=== PATIENT | male | born 1950 | race Caucasian/White ===

== ENCOUNTER 2021-09-30 20:10 | Emergency (ER) | payer MEDICARE, OTHER ==
[2021-09-30] MEDS ORDERED: HYDROmorphone 1 MG/ML CARPUJECT IVP STA (20:31)
[2021-09-30 20:36] LABS: BASOPHILS # (AUTO) 0.1 10^3/uL (0.0-0.1); EOSINOPHILS # (AUTO) 0.1 10^3/uL (0.0-0.7); EOSINOPHILS % (AUTO) 1.9 %; HCT - HEMATOCRIT 43.8 % (42.0-52.0); HGB - HEMOGLOBIN 14.9 g/dL (14.0-18.0); LYMPHOCYTES # (AUTO) 1.6 10^3/uL (1.5-3.5); LYMPHOCYTES % (AUTO) 25.6 %; MEAN CORPUSCULAR HEMOGLOBIN 30.2 pg (27.0-31.0); MEAN CORPUSCULAR VOLUME 88.8 fL (80.0-94.0); MEAN PLATELET VOLUME 9.7 fL (7.4-11.4); MONOCYTES # (AUTO) 0.5 10^3/uL (0.0-1.0); MONOCYTES % (AUTO) 7.2 %; NEUTROPHILS % (AUTO) 64.1 %; PLT - PLATELET COUNT 200 10^3/uL (130-450); RED BLOOD COUNT 4.93 10^6/uL (4.70-6.10); RED CELL DISTRIBUTION WIDTH 12.2 % (12.0-15.0); WHITE BLOOD COUNT 6.2 x10^3/uL (4.8-10.8)
[2021-09-30 20:50] LABS: ALBUMIN 4.3 g/dL (3.2-5.5); ALBUMIN/GLOBULIN RATIO 1.4 (1.0-2.2); BILIRUBIN,TOTAL 1.3 mg/dL (0.2-1.0); CALCIUM 9.9 mg/dL (8.5-10.3); CREATININE 0.8 mg/dL (0.6-1.2); POTASSIUM 3.4 mmol/L (3.5-5.0); TOTAL PROTEIN 7.3 g/dL (6.7-8.2)
--- NOTE | 2021-09-30 20:52 | XRAY Report ---
PROCEDURE: Chest 1 View X-Ray INDICATIONS: Chest pain TECHNIQUE: One view of the chest was acquired. COMPARISON: None FINDINGS: Surgical changes and devices: None. Lungs and pleura: No pleural effusions or pneumothorax. Lungs are clear. Mediastinum: Mediastinal contours appear normal. Heart size is normal. Bones and chest wall: No suspicious bony lesions. Overlying soft tissues appear unremarkable. IMPRESSION: Chest without acute cardiopulmonary abnormalities or focal airspace disease. Reviewed by: Yahir Christensen MD on 09/30/2021 8:51 PM PDT Approved by: Yahir Christensen MD on 09/30/2021 8:51 PM PDT Station ID: [id number]
--- NOTE | 2021-09-30 21:32 | ED Physician Documentation ---
PD HPI ABD PAIN - Stated complaint Stated Complaint: UPPER ABD/RIB PX - Chief complaint Chief Complaint: Cardiac - History obtained from History obtained from: Patient - History of Present Illness Timing - onset: How many hours ago (2-3) Timing - details: Abrupt onset Pain level max: 6 Pain level now: 0 Quality: Pain Location: Other (across upper abdomen) Improved by: Other (pain has resolved by the time of this evaluation but no apparent ameliorating factors when symptoms were present) Worsened by: Other (no exacerbating factors) Associated symptoms: No: Fever, Nausea, Vomiting, Diarrhea, Constipation, Dysuria, Hematuria, Chest pain, Dizzy, Near syncope / syncope Similar symptoms before: Has not had sx before Recently seen: Not recently seen - Additional information Additional information: approximately 2-3 hours [employer], patient had sudden onset of pain across upper abdomen. He was walking home from friend's house after having helped move a [employer] grill , although he did not have pain temporally associated with this activity. He denies h/o similar symptoms and the pain has resolved by the time of this evaluation Review of Systems Constitutional: reports: Reviewed and negative Cardiac: reports: Reviewed and negative Respiratory: reports: Reviewed and negative GI: reports: Abdominal Pain. denies: Abdominal Swelling, Nausea, Vomiting, Constipation, Diarrhea : denies: Dysuria, Frequency, Hematuria Skin: reports: Reviewed and negative Musculoskeletal: denies: Back pain PD PAST MEDICAL HISTORY - Past Medical History Past Medical History: No - Present Medications Home Medications: Ambulatory Orders Medication Instructions Recorded Confirmed HYDROcod/ACETAM 5/325 [[place] 5/325] 1 - 2 tablet PO Q6H PRN #10 tablet 09/30/21 - Allergies Allergies/Adverse Reactions: Allergies Allergy/AdvReac Type Severity Reaction Status Date / Time codeine AdvReac Itching Verified 09/30/21 20:26 - Living Situation Living Arrangement: reports: At home PD ED PE NORMAL - Vitals Vital signs reviewed: Yes - General General: Alert and oriented X 3, No acute distress, Well developed/nourished - Cardiac Cardiac: RRR, No murmur, No gallop, No rub - Respiratory Respiratory: No respiratory distress, Clear bilaterally - Abdomen Abdomen: Normal bowel sounds, Soft, Non tender, Non distended - Back Back: No CVA TTP - Derm Derm: Normal color, Warm and dry - Extremities Extremities: No edema Results - Vitals Vitals: Oxygen O2 Source Room air - EKG (time done) No standard instances Rate: Rate (enter#) (50) Rhythm: NSR Emmett: LAD, Anterior hemiblock Intervals: Normal IA, RBBB QRS: Normal Ischemia: Normal ST segments Compare to prior EKG: Old EKG unavailable - Labs Labs: Laboratory Tests 09/30/21 09/30/21 09/30/21 20:25 20:25 20:25 WBC 6.2 RBC 4.93 Hgb 14.9 Hct 43.8 MCV 88.8 MCH 30.2 MCHC 34.0 RDW 12.2 Plt Count 200 MPV 9.7 Neut # (Auto) 4.0 Lymph # (Auto) 1.6 [place] # (Auto) 0.5 Eos # (Auto) 0.1 Baso # (Auto) 0.1 Absolute Nucleated RBC 0.00 Nucleated RBC % 0.0 Sodium 139 Potassium 3.4 L Chloride 104 Carbon Dioxide 25 Anion Gap 10.0 BUN 23 H Creatinine 0.8 Estimated GFR (MDRD) 95 Glucose 90 Calcium 9.9 Total Bilirubin 1.3 H AST 22 ALT 19 Alkaline Phosphatase 27 L Troponin I High Sens 5.8 Total Protein 7.3 Albumin 4.3 Globulin 3.0 Albumin/Globulin Ratio 1.4 Lipase 27 - Rads (name of study) chest xray Radiology: Prelim report reviewed, See rad report PD MEDICAL DECISION MAKING - ED course Complexity details: reviewed results, re-evaluated patient, considered dif ferential, d/w patient ED course: no concerning findings on chest xray, EKG, blood tests including hs-cTn. Patient is asymptomatic during ED stay. Results d/w patient, return precautions discussed as well. I discussed with patient that the diagnosis is not apparent at this time and amongst possible causes would include PUD, gallstones/biliary colic, angina. I instructed patient to follow up with his PMD for reevaluation Departure - Departure Disposition: 01 Home, Self Care Clinical Impression: Abdominal pain Condition: Good Instructions: ED Abdominal Pain Unkn Cause Male Follow-Up: Tarik Reece MD [Primary Care Provider] - Prescriptions: HYDROcod/ACETAM 5/325 [[place] 5/325] 1 - 2 tablet PO Q6H PRN #10 tablet PRN Reason: Pain Comments: The cause of your symptoms is not apparent at this time. There are no concerning findings on the chest xray, EKG, or blood tests. Follow up with your primary care provider, next available appointment. I am prescribing a short course of narcotic pain medication for you. These are potentially dangerous and addictive medications that should be used carefully. These medications may constipate you. Take an uxva-gyd-ifrirdo stool softener (docusate) twice daily with plenty of water while taking these medications. If you go 24 hours without a bowel movement, take [id number] miralax, per package instructions. Do not drink or drive while taking these medications. If you received narcotic or sedating medications while in the emergency department, do not drive for 24 hours. Store this medication in a safe, secure place and out of reach of children. It is a violation of federal law to give or sell this medication to another person or to use in a manner other than prescribed. The ED will not refill narcotic prescriptions, including prescriptions lost or stolen. To dispose of unwanted medications: 1. [facility] [address] [facility] in [place] has a medication drop box. They accept prescription medications (in pill form) Friday through Friday 9:00 a.m. to 5:00 p.m. 2. The [facility] [employer] accepts prescription medications (in pill form only) for disposal year round. Call for more information. 3. Contact the [facility] for the next [facility] sponsored prescription drug collection event. , [phone], or [phone]; Discharge Date/Time: 09/30/21 22:46
[2021-09-30] MEDS ORDERED: HYDROcod/ACET 5/325 Prepack 4 PO STA (22:27)
[2021-09-30 22:34] VITALS: BP 136/79
== END 2021-09-30 22:46 | disposition home or self-care (01) ==
LOC: EDBD → ED 20:10
DX: R10.10 Upper abdominal pain, unspecified (principal)
CPT/HCPCS: 36415; 71045; 80053; 83690; 84484; 85025; 93005; 96374; 99284; J1170